=== PATIENT | female | born 1955 | race Caucasian/White ===

== ENCOUNTER 2019-08-22 05:37 | Inpatient (IN) ==
[2019-08-22] MEDS ORDERED: VANCOMYCIN 1,000 MG VIAL ONE (06:02)
[2019-08-22] MEDS ORDERED: ceFAZolin 1,000 MG VIAL ONE (06:03)
[2019-08-22] MEDS ORDERED: ROPIVACAINE 0.5% 30 ML VIAL ONE (06:14)
[2019-08-22] MEDS ORDERED: DEXAMETHASONE 4 MG/1 ML VIAL ONE ×2 (06:17→09:02)
[2019-08-22] MEDS ORDERED: LIDOCAINE 1% 5 ML VIAL ONE (06:24)
[2019-08-22] MEDS ORDERED: TRANEXAMIC ACID 1,000 MG/10 ML VIAL ONE (06:25)
[2019-08-22] MEDS ORDERED: ceFAZolin 1,000 MG in SYRINGE 1 EACH IV ONE (06:30)
[2019-08-22] MEDS ORDERED: VANCOMYCIN INJ 1,000 MG in SODIUM CHLORIDE 0.9% 250 ML IV ONE (06:30)
[2019-08-22] MEDS ORDERED: LACTATED RINGERS 1,000 ML IV SCH (07:00)
[2019-08-22] MEDS ORDERED: TEMAZEPAM 7.5 MG CAPSULE PO PRN (07:05)
[2019-08-22] MEDS ORDERED: MORPHINE 4 MG/1 ML VIAL IV PRN ×2 (07:05→10:38)
[2019-08-22] MEDS ORDERED: PROMETHAZINE 25 MG/1 ML VIAL IM PRN (07:05)
[2019-08-22] MEDS ORDERED: diphenhydrAMINE CAP 25 MG CAPSULE PO PRN (07:05)
[2019-08-22] MEDS ORDERED: LACTULOSE 20 GM/30 ML UDCUP PO PRN (07:05)
[2019-08-22] MEDS ORDERED: ONDANSETRON 4 MG/2 ML VIAL IV PRN ×2 (07:05→09:21)
[2019-08-22] MEDS ORDERED: BISACODYL 10 MG SUPP RECTAL PRN (07:05)
[2019-08-22] MEDS ORDERED: MAGNESIUM HYDROXIDE SUSP 30 ML UDCUP PO PRN (07:05)
[2019-08-22] MEDS ORDERED: ALBUTEROL/IPRATROPIUM 3 ML NEB RESP TX PRN (07:08)
[2019-08-22] MEDS ORDERED: FUROSEMIDE 40 MG TABLET PO PRN ×2 (07:08→10:38)
[2019-08-22] MEDS ORDERED: SEVOFLURANE 1 UNIT/15 MINUTE INH ONE (09:01)
[2019-08-22] MEDS ORDERED: LIDOCAINE 2% 5 ML VIAL ONE (09:01)
[2019-08-22] MEDS ORDERED: PROPOFOL 200 MG/20 ML VIAL IV ONE (09:01)
[2019-08-22] MEDS ORDERED: ONDANSETRON 4 MG/2 ML VIAL ONE (09:02)
[2019-08-22] MEDS ORDERED: GLYCOPYRROLATE 0.4 MG/2 ML VIAL ONE (09:02)
[2019-08-22] MEDS ORDERED: NEOSTIGMINE 10 MG/10 ML VIAL ONE (09:02)
[2019-08-22] MEDS ORDERED: LACTATED RINGERS 1,000 ML IV ONE (09:02)
[2019-08-22] MEDS ORDERED: MIDAZOLAM 2 MG/2 ML VIAL ONE (09:02)
[2019-08-22] MEDS ORDERED: ROCURONIUM 100 MG/10 ML VIAL IV ONE (09:02)
[2019-08-22] MEDS ORDERED: fentaNYL 100 MCG/2 ML VIAL ONE (09:02)
[2019-08-22] MEDS ORDERED: PHENYLEPHRINE 1 MG/10 ML SYRINGE IV ONE (09:02)
[2019-08-22] MEDS ORDERED: ACETAMINOPHEN 1,000 MG/100 ML VIAL IV ONE (09:02)
[2019-08-22] MEDS ORDERED: ePHEDrine 50 MG/ML AMP ONE (09:02)
[2019-08-22] MEDS: MORPHINE 10 MG/1 ML VIAL IV PRN ×4 (09:27→09:51)
[2019-08-22] MEDS: carvediloL 6.25 MG TABLET PO SCH ×2 (10:46→21:21)
[2019-08-22] MEDS: DOCUSATE SODIUM 100 MG CAPSULE PO SCH ×2 (10:46→21:21)
[2019-08-22] MEDS: ATORVASTATIN 10 MG TABLET PO SCH (10:46)
[2019-08-22] MEDS: PANTOPRAZOLE 40 MG TABLET PO SCH (10:47)
[2019-08-22] MEDS: CLOPIDOGREL 75 MG TABLET PO SCH (10:47)
[2019-08-22] MEDS: MELOXICAM 7.5 MG TABLET PO SCH (10:47)
[2019-08-22] MEDS: ALLOPURINOL 300 MG TABLET PO SCH (10:47)
[2019-08-22] MEDS: BUDESONIDE/FORMOTEROL 160-4.5 INHALER 6 GM INH SCH ×2 (10:47→21:20)
[2019-08-22] MEDS: NAPROXEN 500 MG TABLET PO SCH ×2 (12:38→23:48)
[2019-08-22] MEDS: ceFAZolin 2,000 MG in PREMIX 1 EACH IV SCH ×2 (15:27→23:30)
[2019-08-22] MEDS ORDERED: FONDAPARINUX 2.5 MG/0.5 ML SYRINGE SUBCUT SCH (20:00)
[2019-08-23] MEDS: ALBUTEROL/IPRATROPIUM 3 ML NEB RESP TX SCH ×6 (00:05→14:15)
[2019-08-23] MEDS ORDERED: ALBUTEROL/IPRATROPIUM 3 ML NEB RESP TX SCH (01:00)
[2019-08-23] MEDS ORDERED: ceFAZolin 2,000 MG in PREMIX 1 EACH IV SCH (01:30)
[2019-08-23 04:48] LABS: Basophils % 0.2 % (0.0-0.8); Eosinophils % 0.3 % (0.00-10.9); Hematocrit 25.4 VOL% (35.7-47.0); Hemoglobin 7.9 GM/DL (12.0-16.0); Immature Granulocytes % 0.5 %; Immature Granulocytes Absolute 0.03 #; Lymphocytes # 0.7 10*3/uL (1.4-4.0); Lymphocytes % 12.1 % (21.3-54.2); Mean Corpuscular HGB Conc 31.1 GM/DL (32-36); Mean Corpuscular Volume 83.6 FL (87-102); Mean Platelet Volume 11.6 FL (9.6-12.0); Monocytes % 9.8 % (1.7-12.7); Neutrophils % 77.1 % (38.7-73.9); Platelet Count 102 T/CUMM (130-400); Red Blood Count 3.04 MC/CUMM (3.8-5.5); Red Cell Distribution Width 15.9 % (9.3-17.3); White Blood Count 6.1 T/CUMM (4-12)
[2019-08-23 05:10] LABS: Calcium 8.2 MG/DL (8.5-10.1); Osmolality,Calculated 291.6 MOS/KG (273-304)
[2019-08-23] MEDS ORDERED: SODIUM CHLORIDE 0.9% 1,000 ML IV PRN (07:21)
[2019-08-23] MEDS: CLOPIDOGREL 75 MG TABLET PO SCH (08:55)
[2019-08-23] MEDS: ALLOPURINOL 300 MG TABLET PO SCH (08:55)
[2019-08-23] MEDS: ATORVASTATIN 10 MG TABLET PO SCH (08:56)
[2019-08-23] MEDS: DOCUSATE SODIUM 100 MG CAPSULE PO SCH ×2 (08:56→20:36)
[2019-08-23] MEDS: MELOXICAM 7.5 MG TABLET PO SCH (08:56)
[2019-08-23] MEDS: carvediloL 6.25 MG TABLET PO SCH ×2 (08:57→20:36)
[2019-08-23] MEDS: PANTOPRAZOLE 40 MG TABLET PO SCH (08:57)
[2019-08-23] MEDS: BUDESONIDE/FORMOTEROL 160-4.5 INHALER 6 GM INH SCH ×2 (09:10→20:36)
[2019-08-23] MEDS: NAPROXEN 500 MG TABLET PO SCH ×2 (13:04→23:16)
[2019-08-23] MEDS ORDERED: ALBUTEROL/IPRATROPIUM 3 ML NEB RESP TX PRN (14:06)
[2019-08-23] MEDS ORDERED: FUROSEMIDE 20 MG/2 ML VIAL IV ONE (14:06)
[2019-08-24 05:38] LABS: Basophils % 0.8 % (0.0-0.8); Eosinophils # 0.2 10*3/uL (0.0-0.87); Eosinophils % 5.8 % (0.00-10.9); Hematocrit 28.8 VOL% (35.7-47.0); Hemoglobin 9.2 GM/DL (12.0-16.0); Immature Granulocytes % 0.6 %; Immature Granulocytes Absolute 0.02 #; Lymphocytes # 0.6 10*3/uL (1.4-4.0); Lymphocytes % 17.8 % (21.3-54.2); Mean Corpuscular HGB Conc 31.9 GM/DL (32-36); Mean Corpuscular Volume 83.7 FL (87-102); Mean Platelet Volume 12.5 FL (9.6-12.0); Monocytes % 14.4 % (1.7-12.7); Neutrophils % 60.6 % (38.7-73.9); Red Blood Count 3.44 MC/CUMM (3.8-5.5); Red Cell Distribution Width 16.1 % (9.3-17.3); White Blood Count 3.6 T/CUMM (4-12)
[2019-08-24 05:40] LABS: Platelet Count 87 T/CUMM (130-400)
[2019-08-24 06:00] LABS: Platelet Estimate Decreased
[2019-08-24 06:01] LABS: Polychromasia Few
[2019-08-24] MEDS: MELOXICAM 7.5 MG TABLET PO SCH (09:12)
[2019-08-24] MEDS: ALLOPURINOL 300 MG TABLET PO SCH (09:13)
[2019-08-24] MEDS: DOCUSATE SODIUM 100 MG CAPSULE PO SCH (09:14)
[2019-08-24] MEDS: PANTOPRAZOLE 40 MG TABLET PO SCH (09:14)
[2019-08-24] MEDS: ATORVASTATIN 10 MG TABLET PO SCH (09:14)
[2019-08-24] MEDS: CLOPIDOGREL 75 MG TABLET PO SCH (09:14)
[2019-08-24] MEDS: carvediloL 6.25 MG TABLET PO SCH (09:15)
[2019-08-24] MEDS: BUDESONIDE/FORMOTEROL 160-4.5 INHALER 6 GM INH SCH (09:19)
[2019-08-24 11:33] VITALS: BP 104/66
[2019-08-24] MEDS: NAPROXEN 500 MG TABLET PO SCH (13:02)
== END 2019-08-24 14:25 | DRG 470 ==
LOC: N.OR 05:37 → N.SDSINP 05:37 → N.3E 10:19
PROVIDERS: ADMIT Orthopaedic Surgery; ATTEND Orthopaedic Surgery

== ENCOUNTER 2020-01-03 17:46 | Observation (INO) ==
[2020-01-03 18:23] LABS: Basophils % 0.6 % (0.0-0.8); Eosinophils # 0.2 10*3/uL (0.0-0.87); Eosinophils % 5.6 % (0.00-10.9); Hematocrit 38.4 VOL% (35.7-47.0); Immature Granulocytes % 0.3 %; Immature Granulocytes Absolute 0.01 #; Lymphocytes # 1.2 10*3/uL (1.4-4.0); Lymphocytes % 33.2 % (21.3-54.2); Mean Corpuscular HGB Conc 31.3 GM/DL (32-36); Mean Corpuscular Volume 76.8 FL (87-102); Mean Platelet Volume 10.6 FL (9.6-12.0); Monocytes % 8.4 % (1.7-12.7); Neutrophils % 51.9 % (38.7-73.9); Platelet Count 121 T/CUMM (130-400); Red Cell Distribution Width 18.4 % (9.3-17.3); White Blood Count 3.6 T/CUMM (4-12)
[2020-01-03 18:34] LABS: INR 1.1; PT Patient Result 11.5 SECS (9.6-12.2); Partial Thromboplastin Time 25.2 SECS (20.8-36.0)
[2020-01-03 18:37] LABS: Alanine Aminotransferase 18 U/L (13-56); Albumin 3.6 G/DL (3.4-5.0); Alkaline Phosphatase 102 U/L (45-117); Aspartate Amino Transferase 17 U/L (0-37); Bilirubin,Total < 0.39 MG/DL (0.2-1.0); Blood Urea Nitrogen 28 MG/DL (7-18); Calcium 8.7 MG/DL (8.5-10.1); Estimated Glom Filtration Rate 105 ML/MIN; Glucose 91 MG/DL (74-106); Osmolality,Calculated 286.3 MOS/KG (273-304); Total Protein 6.5 G/DL (6.4-8.3)
[2020-01-03] MEDS ORDERED: MEPERIDINE 25 MG/1 ML VIAL IV PRN (22:48)
[2020-01-03] MEDS: DOCUSATE SODIUM 100 MG CAPSULE PO SCH (23:39)
[2020-01-04 00:01] LABS: Troponin I < 0.015 NG/ML (0.00-0.045)
[2020-01-04] MEDS: SODIUM CHLORIDE 0.9% 1,000 ML IV SCH ×2 (02:11→17:15)
[2020-01-04] MEDS: ENOXAPARIN 100 MG/ML SYRINGE SUBCUT SCH ×3 (02:11→23:11)
[2020-01-04] MEDS: NITROGLYCERIN 2% OINT 1 INCH/GM PACK TOP SCH ×5 (02:11→23:24)
[2020-01-04 05:29] LABS: Basophils % 0.6 % (0.0-0.8); Eosinophils # 0.1 10*3/uL (0.0-0.87); Eosinophils % 4.2 % (0.00-10.9); Hematocrit 36.6 VOL% (35.7-47.0); Hemoglobin 11.3 GM/DL (12.0-16.0); Immature Granulocytes % 0.3 %; Immature Granulocytes Absolute 0.01 #; Lymphocytes # 1.1 10*3/uL (1.4-4.0); Lymphocytes % 34.4 % (21.3-54.2); Mean Corpuscular HGB Conc 30.9 GM/DL (32-36); Mean Corpuscular Volume 77.5 FL (87-102); Mean Platelet Volume 11.5 FL (9.6-12.0); Monocytes % 9.1 % (1.7-12.7); Neutrophils % 51.4 % (38.7-73.9); Platelet Count 119 T/CUMM (130-400); Red Blood Count 4.72 MC/CUMM (3.8-5.5); Red Cell Distribution Width 18.3 % (9.3-17.3); White Blood Count 3.3 T/CUMM (4-12)
[2020-01-04] MEDS: ONDANSETRON 4 MG/2 ML VIAL IV PRN ×3 (05:35→23:08)
[2020-01-04] MEDS: ACETAMINOPHEN 325 MG TABLET PO PRN ×3 (05:35→21:30)
[2020-01-04 05:59] LABS: Anisocytosis 1+; Hypochromasia 1+; Microcytosis 1+; Platelet Estimate Normal
[2020-01-04 06:00] LABS: Ovalocytes Few
[2020-01-04 06:08] LABS: Alanine Aminotransferase 16 U/L (13-56); Albumin 3.3 G/DL (3.4-5.0); Alkaline Phosphatase 91 U/L (45-117); Aspartate Amino Transferase 15 U/L (0-37); Bilirubin,Total < 0.39 MG/DL (0.2-1.0); Blood Urea Nitrogen 29 MG/DL (7-18); Calcium 8.7 MG/DL (8.5-10.1); Estimated Glom Filtration Rate 109 ML/MIN; Glucose 95 MG/DL (74-106); HDL Cholesterol 36 MG/DL (40-60); Osmolality,Calculated 286.3 MOS/KG (273-304); Risk Ratio 3.72; Total Protein 6.4 G/DL (6.4-8.3); Triglycerides 97 MG/DL (2-150); VLDL CHOLESTEROL 19.4 MG/DL
[2020-01-04] MEDS: DOCUSATE SODIUM 100 MG CAPSULE PO SCH ×2 (08:36→21:31)
[2020-01-04] MEDS: ASPIRIN EC 325 MG TABLET PO SCH (08:36)
[2020-01-04] MEDS ORDERED: PANTOPRAZOLE 40 MG VIAL IV SCH (09:00)
[2020-01-04] MEDS: carvediloL 6.25 MG TABLET PO SCH ×2 (14:12→21:31)
[2020-01-04] MEDS: MELOXICAM 7.5 MG TABLET PO SCH (14:12)
[2020-01-04 14:30] LABS: Apearance,Urine CLEAR (Clear); Bilirubin,Urine Negative (Negative); Blood, Urine Small mg/dL (Negative); Glucose,Urine (UA) Negative (Negative); Ketones,Urine Negative (Negative); Mucus,Urine Occasional /LPF (Occasional); Nitrite,Urine Negative (Negative); Protein,Urine Negative; RBC,Urine <1 /HPF (0-4); Squamous Epithelial Cell,Urine Occasional /HPF (0-10); Urine Color Yellow (Yellow); Urine Specific Gravity 1.014 (1.001-1.035); Urine Urobilinogen < 2.0 EU/DL (0.2-1.0); WBC,Urine 1 /HPF (0-6)
[2020-01-04] MEDS: VENLAFAXINE 37.5 MG TABLET PO SCH ×2 (17:43→21:31)
[2020-01-04] MEDS: ALBUTEROL/IPRATROPIUM 3 ML NEB RESP TX SCH (19:32)
[2020-01-04] MEDS: GABAPENTIN 100 MG CAPSULE PO SCH (22:35)
[2020-01-04 23:48] LABS: Troponin I < 0.015 NG/ML (0.00-0.045)
[2020-01-05] MEDS: ALBUTEROL/IPRATROPIUM 3 ML NEB RESP TX SCH ×4 (00:57→19:35)
[2020-01-05] MEDS: NITROGLYCERIN 2% OINT 1 INCH/GM PACK TOP SCH ×3 (05:41→17:09)
[2020-01-05] MEDS: SODIUM CHLORIDE 0.9% 1,000 ML IV SCH (05:42)
[2020-01-05 05:44] LABS: Basophils % 0.6 % (0.0-0.8); Eosinophils % 1.1 % (0.00-10.9); Hematocrit 36.8 VOL% (35.7-47.0); Hemoglobin 11.3 GM/DL (12.0-16.0); Immature Granulocytes % 0.6 %; Immature Granulocytes Absolute 0.02 #; Lymphocytes # 0.5 10*3/uL (1.4-4.0); Lymphocytes % 14.9 % (21.3-54.2); Mean Corpuscular HGB Conc 30.7 GM/DL (32-36); Mean Corpuscular Volume 77.8 FL (87-102); Mean Platelet Volume 10.8 FL (9.6-12.0); Monocytes % 5.3 % (1.7-12.7); Neutrophils % 77.5 % (38.7-73.9); Red Blood Count 4.73 MC/CUMM (3.8-5.5); Red Cell Distribution Width 18.4 % (9.3-17.3); White Blood Count 3.6 T/CUMM (4-12)
[2020-01-05 05:46] LABS: Platelet Count 93 T/CUMM (130-400)
[2020-01-05 06:02] LABS: Calcium 8.4 MG/DL (8.5-10.1); Osmolality,Calculated 283.4 MOS/KG (273-304); Thyroid Stimulating Hormone 2.34 uIU/ml (0.358-3.74)
[2020-01-05] MEDS ORDERED: SODIUM CHLORIDE 0.9% 1,000 ML IV SCH (08:00)
[2020-01-05] MEDS ORDERED: DIAZEPAM 5 MG TABLET PO ONE (08:17)
[2020-01-05] MEDS ORDERED: diphenhydrAMINE CAP 25 MG CAPSULE PO ONE (08:17)
[2020-01-05] MEDS ORDERED: POTASSIUM CHLORIDE RIDER 10 MEQ in PREMIX 1 EACH IV PRN (08:17)
[2020-01-05] MEDS ORDERED: MAGNESIUM SULF RIDER 2 GM in PREMIX 1 EACH IV PRN (08:17)
[2020-01-05] MEDS ORDERED: FAMOTIDINE 20 MG TABLET PO SCH (09:00)
[2020-01-05] MEDS: MELOXICAM 7.5 MG TABLET PO SCH (10:30)
[2020-01-05] MEDS: ASPIRIN EC 325 MG TABLET PO SCH (10:30)
[2020-01-05] MEDS: VENLAFAXINE 37.5 MG TABLET PO SCH ×2 (10:30→21:23)
[2020-01-05] MEDS: GABAPENTIN 100 MG CAPSULE PO SCH ×3 (10:31→21:23)
[2020-01-05] MEDS: carvediloL 6.25 MG TABLET PO SCH (10:31)
[2020-01-05] MEDS: CLOPIDOGREL 75 MG TABLET PO SCH (10:31)
[2020-01-05] MEDS: ATORVASTATIN 10 MG TABLET PO SCH (10:31)
[2020-01-05] MEDS: allopurinoL 300 MG TABLET PO SCH (10:31)
[2020-01-05] MEDS: DOCUSATE SODIUM 100 MG CAPSULE PO SCH (10:32)
[2020-01-05] MEDS: ENOXAPARIN 100 MG/ML SYRINGE SUBCUT SCH (10:34)
[2020-01-05] MEDS: ONDANSETRON 4 MG/2 ML VIAL IV PRN ×2 (11:46→22:43)
[2020-01-05] MEDS ORDERED: MIDAZOLAM 2 MG/2 ML VIAL ONE (14:13)
[2020-01-05] MEDS ORDERED: fentaNYL 100 MCG/2 ML VIAL ONE (14:14)
[2020-01-05] MEDS ORDERED: LIDOCAINE 1% 20 ML VIAL ONE (14:18)
[2020-01-05] MEDS: carvediloL 25 MG TABLET PO SCH ×2 (16:14→21:23)
[2020-01-06] MEDS: ALBUTEROL/IPRATROPIUM 3 ML NEB RESP TX SCH ×4 (00:30→19:06)
[2020-01-06] MEDS: NITROGLYCERIN 2% OINT 1 INCH/GM PACK TOP SCH ×4 (02:43→17:24)
[2020-01-06 05:57] LABS: Basophils % 0.2 % (0.0-0.8); Eosinophils % 0.2 % (0.00-10.9); Hematocrit 36.6 VOL% (35.7-47.0); Hemoglobin 10.9 GM/DL (12.0-16.0); Immature Granulocytes % 0.6 %; Immature Granulocytes Absolute 0.03 #; Lymphocytes # 0.7 10*3/uL (1.4-4.0); Lymphocytes % 13.4 % (21.3-54.2); Mean Corpuscular HGB Conc 29.8 GM/DL (32-36); Mean Corpuscular Volume 79.4 FL (87-102); Mean Platelet Volume 11.5 FL (9.6-12.0); Monocytes % 6.1 % (1.7-12.7); Neutrophils % 79.5 % (38.7-73.9); Platelet Count 136 T/CUMM (130-400); Red Blood Count 4.61 MC/CUMM (3.8-5.5); Red Cell Distribution Width 18.6 % (9.3-17.3); White Blood Count 5.2 T/CUMM (4-12)
[2020-01-06] MEDS: PANTOPRAZOLE 40 MG TABLET PO SCH ×2 (06:43→20:47)
[2020-01-06 06:51] LABS: Calcium 8.6 MG/DL (8.5-10.1); Osmolality,Calculated 279.5 MOS/KG (273-304)
[2020-01-06 07:04] LABS: Calcium 8.6 MG/DL (8.5-10.1); Osmolality,Calculated 279.5 MOS/KG (273-304)
[2020-01-06 07:17] LABS: Alanine Aminotransferase 17 U/L (13-56); Albumin 3.3 G/DL (3.4-5.0); Alkaline Phosphatase 84 U/L (45-117); Aspartate Amino Transferase 22 U/L (0-37); Bilirubin,Direct < 0.100 MG/DL (0.0-0.20); Bilirubin,Indirect 0.3 MG/DL (0.0-1.0); Bilirubin,Total < 0.39 MG/DL (0.2-1.0); Total Protein 6.3 G/DL (6.4-8.3)
[2020-01-06] MEDS: GABAPENTIN 100 MG CAPSULE PO SCH ×3 (10:21→20:47)
[2020-01-06] MEDS: ATORVASTATIN 10 MG TABLET PO SCH (10:22)
[2020-01-06] MEDS: VENLAFAXINE 37.5 MG TABLET PO SCH ×2 (10:22→20:47)
[2020-01-06] MEDS: CLOPIDOGREL 75 MG TABLET PO SCH (10:22)
[2020-01-06] MEDS: allopurinoL 300 MG TABLET PO SCH (10:22)
[2020-01-06] MEDS: ASPIRIN EC 325 MG TABLET PO SCH (10:22)
[2020-01-06] MEDS: carvediloL 25 MG TABLET PO SCH ×2 (10:23→20:48)
[2020-01-07] MEDS: NITROGLYCERIN 2% OINT 1 INCH/GM PACK TOP SCH ×4 (00:05→17:03)
[2020-01-07] MEDS: ALBUTEROL/IPRATROPIUM 3 ML NEB RESP TX SCH ×4 (01:28→21:17)
[2020-01-07 05:51] LABS: Calcium 8.6 MG/DL (8.5-10.1); Osmolality,Calculated 279.5 MOS/KG (273-304)
[2020-01-07 05:54] LABS: Basophils % 0.6 % (0.0-0.8); Eosinophils # 0.1 10*3/uL (0.0-0.87); Eosinophils % 1.7 % (0.00-10.9); Hemoglobin 10.3 GM/DL (12.0-16.0); Immature Granulocytes % 0.6 %; Immature Granulocytes Absolute 0.03 #; Lymphocytes # 0.8 10*3/uL (1.4-4.0); Lymphocytes % 17.4 % (21.3-54.2); Mean Corpuscular HGB Conc 30.3 GM/DL (32-36); Mean Corpuscular Volume 78.7 FL (87-102); Mean Platelet Volume 11.8 FL (9.6-12.0); Neutrophils % 70.7 % (38.7-73.9); Red Blood Count 4.32 MC/CUMM (3.8-5.5); Red Cell Distribution Width 18.6 % (9.3-17.3); White Blood Count 4.7 T/CUMM (4-12)
[2020-01-07 06:20] LABS: Platelet Count 103 T/CUMM (130-400)
[2020-01-07] MEDS: PANTOPRAZOLE 40 MG TABLET PO SCH ×2 (07:47→18:10)
[2020-01-07] MEDS: ASPIRIN EC 325 MG TABLET PO SCH (09:29)
[2020-01-07] MEDS: allopurinoL 300 MG TABLET PO SCH (09:29)
[2020-01-07] MEDS: ATORVASTATIN 10 MG TABLET PO SCH (09:29)
[2020-01-07] MEDS: VENLAFAXINE 37.5 MG TABLET PO SCH ×2 (09:29→21:01)
[2020-01-07] MEDS: GABAPENTIN 100 MG CAPSULE PO SCH ×3 (09:30→21:00)
[2020-01-07] MEDS: carvediloL 25 MG TABLET PO SCH ×2 (09:30→21:01)
[2020-01-07] MEDS: CLOPIDOGREL 75 MG TABLET PO SCH ×2 (09:30→09:31)
[2020-01-07] MEDS: ACETAMINOPHEN 325 MG TABLET PO PRN (23:30)
[2020-01-08] MEDS: NITROGLYCERIN 2% OINT 1 INCH/GM PACK TOP SCH ×3 (00:57→12:35)
[2020-01-08] MEDS: ALBUTEROL/IPRATROPIUM 3 ML NEB RESP TX SCH ×4 (01:08→19:05)
[2020-01-08 05:08] LABS: Basophils % 0.2 % (0.0-0.8); Eosinophils # 0.1 10*3/uL (0.0-0.87); Eosinophils % 1.4 % (0.00-10.9); Hematocrit 33.8 VOL% (35.7-47.0); Hemoglobin 10.6 GM/DL (12.0-16.0); Immature Granulocytes % 0.2 %; Immature Granulocytes Absolute 0.01 #; Lymphocytes # 1.1 10*3/uL (1.4-4.0); Lymphocytes % 20.9 % (21.3-54.2); Mean Corpuscular HGB Conc 31.4 GM/DL (32-36); Mean Corpuscular Volume 76.3 FL (87-102); Mean Platelet Volume 11.6 FL (9.6-12.0); Monocytes % 10.6 % (1.7-12.7); Neutrophils % 66.7 % (38.7-73.9); Platelet Count 108 T/CUMM (130-400); Red Blood Count 4.43 MC/CUMM (3.8-5.5); Red Cell Distribution Width 18.5 % (9.3-17.3)
[2020-01-08 05:24] LABS: Calcium 8.8 MG/DL (8.5-10.1); Osmolality,Calculated 275.7 MOS/KG (273-304)
[2020-01-08 05:33] LABS: Hypochromasia 1+; Ovalocytes Slight; Platelet Estimate Decreased
[2020-01-08] MEDS: PANTOPRAZOLE 40 MG TABLET PO SCH ×2 (07:02→21:55)
[2020-01-08] MEDS ORDERED: LACTATED RINGERS 1,000 ML IV SCH (07:30)
[2020-01-08] MEDS ORDERED: LIDOCAINE 2% 5 ML VIAL ONE (08:30)
[2020-01-08] MEDS ORDERED: propofoL 200 MG/20 ML VIAL IV ONE (08:30)
[2020-01-08] MEDS ORDERED: ETOMIDATE 20 MG/10 ML VIAL IV ONE (08:30)
[2020-01-08] MEDS: CLOPIDOGREL 75 MG TABLET PO SCH (09:50)
[2020-01-08] MEDS: ASPIRIN EC 325 MG TABLET PO SCH (09:50)
[2020-01-08] MEDS: VENLAFAXINE 37.5 MG TABLET PO SCH ×2 (09:50→21:57)
[2020-01-08] MEDS: GABAPENTIN 100 MG CAPSULE PO SCH ×3 (09:50→21:55)
[2020-01-08] MEDS: ATORVASTATIN 10 MG TABLET PO SCH (09:50)
[2020-01-08] MEDS: allopurinoL 300 MG TABLET PO SCH (09:50)
[2020-01-08] MEDS: carvediloL 25 MG TABLET PO SCH ×2 (09:50→21:55)
[2020-01-09] MEDS: ALBUTEROL/IPRATROPIUM 3 ML NEB RESP TX SCH ×2 (00:10→07:49)
[2020-01-09 06:22] LABS: Calcium 8.6 MG/DL (8.5-10.1); Osmolality,Calculated 271.8 MOS/KG (273-304)
[2020-01-09 06:31] LABS: Basophils % 0.5 % (0.0-0.8); Eosinophils # 0.1 10*3/uL (0.0-0.87); Eosinophils % 1.8 % (0.00-10.9); Hematocrit 31.9 VOL% (35.7-47.0); Hemoglobin 10.2 GM/DL (12.0-16.0); Immature Granulocytes % 0.3 %; Immature Granulocytes Absolute 0.01 #; Lymphocytes # 0.8 10*3/uL (1.4-4.0); Lymphocytes % 19.3 % (21.3-54.2); Mean Corpuscular Volume 75.8 FL (87-102); Mean Platelet Volume 11.6 FL (9.6-12.0); Monocytes % 11.5 % (1.7-12.7); Neutrophils % 66.6 % (38.7-73.9); Platelet Count 103 T/CUMM (130-400); Red Blood Count 4.21 MC/CUMM (3.8-5.5); Red Cell Distribution Width 18.3 % (9.3-17.3); White Blood Count 3.9 T/CUMM (4-12)
[2020-01-09 07:14] LABS: Hypochromasia 1+; Microcytosis 1+; Platelet Estimate Decreased
[2020-01-09 08:53] VITALS: BP 143/88
[2020-01-09] MEDS ORDERED: ASPIRIN EC 81 MG TABLET PO SCH (09:00)
[2020-01-09] MEDS: GABAPENTIN 100 MG CAPSULE PO SCH (09:07)
[2020-01-09] MEDS: allopurinoL 300 MG TABLET PO SCH (09:07)
[2020-01-09] MEDS: CLOPIDOGREL 75 MG TABLET PO SCH (09:08)
[2020-01-09] MEDS: ATORVASTATIN 10 MG TABLET PO SCH (09:08)
[2020-01-09] MEDS: PANTOPRAZOLE 40 MG TABLET PO SCH (09:08)
[2020-01-09] MEDS: carvediloL 25 MG TABLET PO SCH (09:08)
[2020-01-09] MEDS: VENLAFAXINE 37.5 MG TABLET PO SCH (09:14)
== END 2020-01-09 09:25 | disposition home or self-care (01) ==
LOC: N.ED 17:46 → N.EDINP 17:46 → N.TELES 21:46
PROVIDERS: ADMIT Internal Medicine; ATTEND Internal Medicine
PROC: CLCCHCL (ICD-10-PCS; 2020-01-05 15:15)

== ENCOUNTER 2020-04-29 15:30 | Inpatient (IN) ==
[2020-04-29] MEDS ORDERED: MAGNESIUM HYDROXIDE SUSP 30 ML UDCUP PO PRN (15:37)
[2020-04-29] MEDS ORDERED: PROMETHAZINE 25 MG/1 ML VIAL IM PRN (15:37)
[2020-04-29] MEDS ORDERED: cloNIDine 0.1 MG TABLET PO PRN (15:49)
[2020-04-29 17:02] LABS: Basophils % 0.7 % (0.0-0.8); Eosinophils # 0.1 10*3/uL (0.0-0.87); Hematocrit 40.7 VOL% (35.7-47.0); Hemoglobin 12.4 GM/DL (12.0-16.0); Immature Granulocytes % 0.2 %; Immature Granulocytes Absolute 0.01 #; Lymphocytes # 1.1 10*3/uL (1.4-4.0); Lymphocytes % 24.8 % (21.3-54.2); Mean Corpuscular HGB Conc 30.5 GM/DL (32-36); Mean Corpuscular Volume 79.8 FL (87-102); Mean Platelet Volume 10.8 FL (9.6-12.0); Neutrophils % 65.3 % (38.7-73.9); Platelet Count 120 T/CUMM (130-400); Red Cell Distribution Width 16.4 % (9.3-17.3); White Blood Count 4.4 T/CUMM (4-12)
[2020-04-29 17:22] LABS: Albumin 3.6 G/DL (3.4-5.0); Bilirubin,Total 0.4 MG/DL (0.2-1.0); Calcium 8.7 MG/DL (8.5-10.1); Osmolality,Calculated 275.7 MOS/KG (273-304); Total Protein 7.4 G/DL (6.4-8.3)
[2020-04-29] MEDS: SODIUM CHLORIDE 0.9% 1,000 ML IV SCH (18:34)
[2020-04-29] MEDS: ALBUTEROL/IPRATROPIUM 3 ML NEB RESP TX SCH (19:57)
[2020-04-29 20:07] LABS: Anisocytosis 1+
[2020-04-29 20:08] LABS: Microcytosis Slight; Ovalocytes Slight
[2020-04-29 20:16] LABS: Apearance,Urine CLEAR (Clear); Bilirubin,Urine Negative (Negative); Blood, Urine Small mg/dL (Negative); Glucose,Urine (UA) Negative (Negative); Ketones,Urine Negative (Negative); Mucus,Urine Occasional /LPF (Occasional); Nitrite,Urine Negative (Negative); Protein,Urine Negative; RBC,Urine 1 /HPF (0-4); Squamous Epithelial Cell,Urine Occasional /HPF (0-10); Urine Color Straw (Yellow); Urine Specific Gravity 1.005 (1.001-1.035); Urine Urobilinogen < 2.0 EU/DL (0.2-1.0); WBC,Urine <1 /HPF (0-6)
[2020-04-29] MEDS ORDERED: carvediloL 6.25 MG TABLET PO SCH (21:00)
[2020-04-29] MEDS: DOCUSATE SODIUM 100 MG CAPSULE PO SCH (21:14)
[2020-04-29] MEDS: PANTOPRAZOLE 40 MG VIAL IV SCH (21:14)
[2020-04-29] MEDS: ONDANSETRON 4 MG/2 ML VIAL IV PRN (22:30)
[2020-04-30] MEDS: ALBUTEROL/IPRATROPIUM 3 ML NEB RESP TX SCH ×4 (00:10→19:00)
[2020-04-30 06:06] LABS: Basophils % 0.2 % (0.0-0.8); Eosinophils # 0.1 10*3/uL (0.0-0.87); Eosinophils % 1.4 % (0.00-10.9); Hematocrit 36.9 VOL% (35.7-47.0); Hemoglobin 11.4 GM/DL (12.0-16.0); Immature Granulocytes % 0.2 %; Immature Granulocytes Absolute 0.01 #; Lymphocytes % 23.2 % (21.3-54.2); Mean Corpuscular HGB Conc 30.9 GM/DL (32-36); Mean Corpuscular Volume 78.5 FL (87-102); Mean Platelet Volume 11.8 FL (9.6-12.0); Monocytes % 6.8 % (1.7-12.7); Neutrophils % 68.2 % (38.7-73.9); Platelet Count 100 T/CUMM (130-400); Red Cell Distribution Width 16.4 % (9.3-17.3); White Blood Count 4.3 T/CUMM (4-12)
[2020-04-30] MEDS: SODIUM CHLORIDE 0.9% 1,000 ML IV SCH ×3 (06:06→16:01)
[2020-04-30 06:23] LABS: Calcium 8.7 MG/DL (8.5-10.1); Osmolality,Calculated 283.1 MOS/KG (273-304)
[2020-04-30 06:49] LABS: Hypochromasia 1+; Platelet Estimate Decreased
[2020-04-30 06:50] LABS: Microcytosis Slight
[2020-04-30 07:12] LABS: Troponin I < 0.015 NG/ML (0.00-0.045)
[2020-04-30] MEDS: PANTOPRAZOLE 40 MG VIAL IV SCH ×2 (08:36→20:54)
[2020-04-30] MEDS: carvediloL 3.125 MG TABLET PO SCH ×2 (08:37→16:17)
[2020-04-30] MEDS: ONDANSETRON 4 MG/2 ML VIAL IV PRN ×2 (08:38→15:40)
[2020-04-30] MEDS: DOCUSATE SODIUM 100 MG CAPSULE PO SCH ×2 (08:38→20:56)
[2020-04-30 10:03] LABS: Troponin I < 0.015 NG/ML (0.00-0.045)
[2020-04-30 13:04] LABS: Troponin I < 0.015 NG/ML (0.00-0.045)
[2020-04-30] MEDS: ACETAMINOPHEN 325 MG TABLET PO PRN (14:04)
[2020-04-30] MEDS: cefTRIAXone 500 MG in SYRINGE 1 EACH IV SCH (17:20)
[2020-04-30] MEDS: methylPREDNISolone SOD SUC 40 MG/1 ML VIAL IV SCH (18:42)
[2020-05-01] MEDS: ALBUTEROL/IPRATROPIUM 3 ML NEB RESP TX SCH ×4 (00:40→19:14)
[2020-05-01] MEDS: SODIUM CHLORIDE 0.9% 1,000 ML IV SCH ×3 (02:44→17:32)
[2020-05-01] MEDS: ACETAMINOPHEN 325 MG TABLET PO PRN ×2 (02:48→11:56)
[2020-05-01 03:31] LABS: Basophils % 0.2 % (0.0-0.8); Eosinophils % 0.4 % (0.00-10.9); Hematocrit 36.6 VOL% (35.7-47.0); Hemoglobin 11.4 GM/DL (12.0-16.0); Immature Granulocytes % 0.4 %; Immature Granulocytes Absolute 0.02 #; Lymphocytes % 20.1 % (21.3-54.2); Mean Corpuscular HGB Conc 31.1 GM/DL (32-36); Mean Corpuscular Volume 78.9 FL (87-102); Mean Platelet Volume 10.9 FL (9.6-12.0); Monocytes % 7.3 % (1.7-12.7); Neutrophils % 71.6 % (38.7-73.9); Platelet Count 113 T/CUMM (130-400); Red Blood Count 4.64 MC/CUMM (3.8-5.5); Red Cell Distribution Width 16.6 % (9.3-17.3); White Blood Count 4.9 T/CUMM (4-12)
[2020-05-01 03:58] LABS: Osmolality,Calculated 275.5 MOS/KG (273-304)
[2020-05-01 04:38] LABS: Microcytosis Slight; Platelet Estimate Decreased
[2020-05-01] MEDS: methylPREDNISolone SOD SUC 40 MG/1 ML VIAL IV SCH ×2 (06:25→18:20)
[2020-05-01] MEDS: carvediloL 3.125 MG TABLET PO SCH ×2 (09:07→17:52)
[2020-05-01] MEDS: DOCUSATE SODIUM 100 MG CAPSULE PO SCH ×2 (09:08→21:31)
[2020-05-01] MEDS: PANTOPRAZOLE 40 MG VIAL IV SCH ×2 (09:08→21:31)
[2020-05-01] MEDS: cefTRIAXone 500 MG in SYRINGE 1 EACH IV SCH (18:20)
[2020-05-02] MEDS: ALBUTEROL/IPRATROPIUM 3 ML NEB RESP TX SCH ×3 (00:19→12:15)
[2020-05-02] MEDS: SODIUM CHLORIDE 0.9% 1,000 ML IV SCH ×2 (04:40→19:05)
[2020-05-02] MEDS: methylPREDNISolone SOD SUC 40 MG/1 ML VIAL IV SCH (06:59)
[2020-05-02] MEDS: carvediloL 3.125 MG TABLET PO SCH ×2 (09:41→17:02)
[2020-05-02] MEDS: PANTOPRAZOLE 40 MG VIAL IV SCH (09:42)
[2020-05-02] MEDS: DOCUSATE SODIUM 100 MG CAPSULE PO SCH (09:44)
[2020-05-02 16:36] VITALS: BP 156/62
[2020-05-02] MEDS ORDERED: PANTOPRAZOLE 40 MG TABLET PO SCH (19:00)
== END 2020-05-02 19:15 | disposition home or self-care (01) | DRG 392 ==
LOC: N.TELES 15:44
PROVIDERS: ADMIT Internal Medicine; ATTEND Internal Medicine

== ENCOUNTER 2021-02-28 16:02 | Observation (INO) ==
[2021-02-28 16:38] LABS: Basophils % 0.3 % (0.0-0.8); Eosinophils # 0.1 10*3/uL (0.0-0.87); Hematocrit 41.5 VOL% (35.7-47.0); Hemoglobin 13.1 GM/DL (12.0-16.0); Immature Granulocytes % 0.3 %; Immature Granulocytes Absolute 0.02 #; Lymphocytes # 0.8 10*3/uL (1.4-4.0); Lymphocytes % 13.2 % (21.3-54.2); Mean Corpuscular HGB Conc 31.6 GM/DL (32-36); Mean Corpuscular Volume 80.1 FL (87-102); Mean Platelet Volume 10.6 FL (9.6-12.0); Monocytes % 6.1 % (1.7-12.7); Neutrophils % 79.1 % (38.7-73.9); Platelet Count 148 T/CUMM (130-400); Red Blood Count 5.18 MC/CUMM (3.8-5.5); Red Cell Distribution Width 15.6 % (9.3-17.3); White Blood Count 5.9 T/CUMM (4-12)
[2021-02-28 17:09] LABS: Troponin I < 0.015 NG/ML (0.00-0.045)
[2021-02-28 17:32] LABS: INR 1.1; PT Patient Result 12.2 SECS (9.8-11.9); Partial Thromboplastin Time 29.7 SECS (23.9-33.8)
[2021-02-28 17:33] LABS: Alanine Aminotransferase 28 U/L (13-56); Albumin 3.9 G/DL (3.4-5.0); Alkaline Phosphatase 97 U/L (45-117); Aspartate Amino Transferase 22 U/L (0-37); Bilirubin,Total < 0.39 MG/DL (0.2-1.0); Blood Urea Nitrogen 13 MG/DL (7-18); Calcium 8.5 MG/DL (8.5-10.1); Carbon Dioxide 30 MMOL/L (21-32); Estimated Glom Filtration Rate 114 ML/MIN; Glucose 122 MG/DL (74-106); Potassium 3.4 MMOL/L (3.5-5.1); Sodium 143 MMOL/L (136-145); Total Protein 6.8 G/DL (6.4-8.2)
[2021-02-28] MEDS ORDERED: ENOXAPARIN 80 MG/0.8 ML SYRINGE SUBCUT STA (17:49)
[2021-02-28] MEDS ORDERED: ONDANSETRON 4 MG/2 ML VIAL IV PRN (19:01)
[2021-02-28 19:38] LABS: Troponin I < 0.015 NG/ML (0.00-0.045)
[2021-02-28] MEDS: DOCUSATE SODIUM 100 MG CAPSULE PO SCH (20:09)
[2021-02-28] MEDS: ACETAMINOPHEN 325 MG TABLET PO PRN (20:09)
[2021-02-28 22:41] LABS: Troponin I < 0.015 NG/ML (0.00-0.045)
[2021-03-01 01:56] LABS: Troponin I < 0.015 NG/ML (0.00-0.045)
[2021-03-01] MEDS: DOCUSATE SODIUM 100 MG CAPSULE PO SCH ×2 (09:11→21:00)
[2021-03-01] MEDS: PANTOPRAZOLE 40 MG TABLET PO SCH (09:12)
[2021-03-01] MEDS ORDERED: ALBUTEROL 2.5 MG/3 ML NEB RESP TX PRN (10:42)
[2021-03-01] MEDS: allopurinoL 100 MG TABLET PO SCH (11:21)
[2021-03-01] MEDS: CLOPIDOGREL 75 MG TABLET PO SCH (11:32)
[2021-03-01] MEDS ORDERED: POTASSIUM CHLORIDE 20 MEQ TABLET PO PRN (12:40)
[2021-03-01] MEDS: POTASSIUM CHLORIDE 20 MEQ TABLET PO SCH ×2 (13:09→21:01)
[2021-03-01] MEDS: ENOXAPARIN 40 MG/0.4 ML SYRINGE SUBCUT SCH (13:10)
[2021-03-01] MEDS: BUDESONIDE/FORMOTEROL 160-4.5 INHALER 6 GM INH SCH ×2 (13:14→21:01)
[2021-03-01] MEDS: carvediloL 3.125 MG TABLET PO SCH (17:00)
[2021-03-01] MEDS ORDERED: ASPIRIN EC 81 MG TABLET PO SCH (21:00)
[2021-03-01] MEDS ORDERED: ATORVASTATIN 10 MG TABLET PO SCH (21:00)
[2021-03-01] MEDS: ACETAMINOPHEN 325 MG TABLET PO PRN (21:04)
[2021-03-02 05:53] LABS: Basophils % 0.5 % (0.0-0.8); Eosinophils # 0.1 10*3/uL (0.0-0.87); Eosinophils % 1.8 % (0.00-10.9); Hemoglobin 12.6 GM/DL (12.0-16.0); Immature Granulocytes % 0.3 %; Immature Granulocytes Absolute 0.01 #; Lymphocytes # 0.7 10*3/uL (1.4-4.0); Lymphocytes % 18.7 % (21.3-54.2); Mean Corpuscular HGB Conc 31.5 GM/DL (32-36); Mean Corpuscular Volume 79.7 FL (87-102); Mean Platelet Volume 11.8 FL (9.6-12.0); Monocytes % 8.8 % (1.7-12.7); Neutrophils % 69.9 % (38.7-73.9); Platelet Count 144 T/CUMM (130-400); Red Blood Count 5.02 MC/CUMM (3.8-5.5); White Blood Count 3.9 T/CUMM (4-12)
[2021-03-02 06:06] LABS: Calcium 8.8 MG/DL (8.5-10.1); Osmolality,Calculated 282.1 MOS/KG (273-304); Potassium 3.8 MMOL/L (3.5-5.1)
[2021-03-02] MEDS: ACETAMINOPHEN 325 MG TABLET PO PRN (06:18)
[2021-03-02] MEDS: DOCUSATE SODIUM 100 MG CAPSULE PO SCH (08:48)
[2021-03-02] MEDS: CLOPIDOGREL 75 MG TABLET PO SCH (08:48)
[2021-03-02] MEDS: PANTOPRAZOLE 40 MG TABLET PO SCH (08:48)
[2021-03-02] MEDS: carvediloL 3.125 MG TABLET PO SCH (08:49)
[2021-03-02] MEDS: allopurinoL 100 MG TABLET PO SCH (08:49)
[2021-03-02] MEDS: POTASSIUM CHLORIDE 20 MEQ TABLET PO SCH (08:49)
[2021-03-02] MEDS: BUDESONIDE/FORMOTEROL 160-4.5 INHALER 6 GM INH SCH (09:03)
[2021-03-02] MEDS: ENOXAPARIN 40 MG/0.4 ML SYRINGE SUBCUT SCH (11:04)
[2021-03-02 12:34] VITALS: BP 128/62
== END 2021-03-02 12:25 | disposition home or self-care (01) ==
LOC: EDUNIT# → EDBD → N.ED 16:02 → N.EDINP 16:02 → N.TELEN 18:11
PROVIDERS: ADMIT Internal Medicine; ATTEND Internal Medicine